=== PATIENT | female | born 2000 | race Caucasian/White ===

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

== ENCOUNTER 2021-08-19 19:09 | Emergency (ER) | payer SELFPAY ==
[~2021-08-19] VITALS: Ht 162.6 cm; Wt 63.5 kg
[2021-08-19 20:08] VITALS: BP_SYST 122
[2021-08-19] MEDS ORDERED: LIDOCAINE 1%, 20 ML MDV 20 ML ONE (21:48)
[2021-08-19] MEDS ORDERED: LIDOCAINE 1% 10 MG/ML, 20 ML MDV INJ ONE (22:00)
[2021-08-19] MEDS ORDERED: CEPH-548 PO (22:02)
[2021-08-19] MEDS ORDERED: NAPR-1172 PO (22:02)
[2021-08-19 22:17] VITALS: BP_SYST 103
== END 2021-08-19 22:17 | disposition home or self-care (01) ==
LOC: SED 19:09
DX: L03.012 Cellulitis of left finger (principal); Z79.899 Other long term (current) drug therapy
CPT/HCPCS: 10060; 99283; J2001

== ENCOUNTER 2022-04-04 16:47 | Emergency (ER) | payer MEDICAID ==
[~2022-04-04] VITALS: Ht 162.6 cm; Wt 68.0 kg
[~2022-04-04 16:47] MED LIST: CEPH-548 PO; NAPR-1172 PO
[2022-04-04 17:06] VITALS: BP_SYST 130
--- NOTE | 2022-04-04 17:17 | NUR ---
Patient triaged and placed in waiting room. VSS and patient appears in no acute distress at this time. Accompanied by staff, awaiting available bed, and MD notified of need for MSE.
--- NOTE | 2022-04-04 17:47 | NUR ---
ER Dr. Mccord in waiting room examining patient.
--- NOTE | 2022-04-04 17:47 | NUR ---
Patient came in from home c/o increasing anxiety over the last two months. 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 Pt is calm and cooperative, VSS. Will continue to monitor and provide care as ordered.
[2022-04-04 18:04] LABS: BASOPHILS # (AUTO) 0.1 K/uL (0.0-0.2); BASOPHILS % (AUTO) 0.9 % (0.0-2.0); EOSINOPHILS # (AUTO) 0.6 K/uL (0.0-0.4); EOSINOPHILS % (AUTO) 7.2 % (0.0-4.0); HEMATOCRIT 36.6 % (36-48); HEMOGLOBIN 12.5 g/dL (12.0-16.0); LYMPHOCYTES # (AUTO) 3.1 K/uL (1.0-5.5); LYMPHOCYTES % (AUTO) 36.8 % (20.5-51.5); MEAN CORPUSCULAR HEMOGLOBIN 30 pg (27-31); MEAN CORPUSCULAR HGB CONC 34 % (32-36); MEAN CORPUSCULAR VOLUME 87 fL (79.0-98.0); MONOCYTES # (AUTO) 0.6 K/uL (0.0-1.0); MONOCYTES % (AUTO) 6.9 % (1.7-9.3); NEUTROPHILS # (AUTO) 4.1 K/uL (1.8-7.7); NEUTROPHILS % (AUTO) 48.2 % (40.0-70.0); PLATELET COUNT (AUTO) 220 K/uL (130-430); RED BLOOD CELL COUNT(AUTO) 4.22 MIL/uL (4.2-6.2); RED CELL DISTRIBUTION WIDTH 12.7 % (9.0-15.0); WHITE BLOOD COUNT (AUTO) 8.5 K/uL (4.8-10.8)
[2022-04-04 18:19] LABS: ANION GAP 7 (5-15); CHLORIDE 105 mmol/L (98-107); GLUCOSE 96 mg/dL (70-99); SODIUM SERUM 140 mmol/L (136-145)
[2022-04-04 18:20] LABS: ALANINE AMINOTRANSFERASE 20 U/L (12-78); ALBUMIN 3.3 g/dL (3.4-4.8); AMYLASE 60 U/L (0-100); ASPARTATE AMINOTRANSFERASE 19 U/L (10-37); C-REACTIVE PROTEIN QUANT < 0.2 mg/dL (0-0.5); CALCIUM 8.2 mg/dL (8.4-11.0); CREATININE 0.82 mg/dL (0.55-1.30); GFR AFRICAN AMERICAN 112 mL/min (>90); LIPASE 124 U/L (73-393); TOTAL BILIRUBIN 0.3 mg/dL (0.0-1.0); UREA NITROGEN, BLOOD 11 mg/dL (8-21)
[2022-04-04 18:27] LABS: ACETONE, SERUM NEGATIVE (NEGATIVE)
[2022-04-04] MEDS ORDERED: ALPR0.25 PO (18:45)
[2022-04-04 18:50] LABS: BILIRUBIN,URINE NEGATIVE (NEGATIVE); BLOOD, URINE NEGATIVE (NEGATIVE); CLARITY/URINE CLEAR (CLEAR); COLOR,URINE YELLOW (YELLOW); GLUCOSE,URINE NEGATIVE (NEGATIVE); KETONES,URINE NEGATIVE (NEGATIVE); LEUKOCYTE ESTERASE ,URINE NEGATIVE (NEGATIVE); NITRITE, URINE NEGATIVE (NEGATIVE); PROTEIN URINE NEGATIVE (NEGATIVE); UROBILINOGEN,URINE 0.2 (0.2-1.0)
[2022-04-04 19:22] VITALS: BP_SYST 130
--- NOTE | 2022-04-04 19:22 | NUR ---
Patient given written and verbal discharge instructions and verbalizes understanding. ER Dr. Mccord discussed with patient the results and treatment provided. Patient in stable condition. ID arm band removed. Rx of xanax given. Patient educated on pain management and to follow up with PMD. Pain Scale 0. Opportunity for questions provided and answered. Medication side effect fact sheet provided.
== END 2022-04-04 19:22 | disposition home or self-care (01) ==
LOC: SED 16:47
DX: F41.9 Anxiety disorder, unspecified (principal); Z79.899 Other long term (current) drug therapy
CPT/HCPCS: 36415; 80053; 81003; 81025; 82009; 82150; 83605; 83690; 84703; 85025; 86140; 99283

== ENCOUNTER 2024-06-15 12:22 | Emergency (ER) | payer OTHER, MEDICAID ==
[~2024-06-15] VITALS: Ht 162.6 cm; Wt 70.8 kg
[2024-06-15 12:22] VITALS: BP_SYST 118; PULSE 82; RESP 18; TEMP 98; O2SAT 100
[~2024-06-15 12:22] MED LIST changes: +ALPR0.25 PO
[2024-06-15] MEDS ORDERED: ONDANSETRON HCL 4 MG/2 ML VIAL IVP ONE (13:00)
[2024-06-15] MEDS: NACL 0.9% 1,000 ML IV ONE (13:13)
[2024-06-15 13:19] LABS: BASOPHILS % (AUTO) 0.5 % (0.0-2.0); EOSINOPHILS # (AUTO) 0.1 K/uL (0.0-0.4); EOSINOPHILS % (AUTO) 1.6 % (0.0-4.0); HEMATOCRIT 37.4 % (36-48); HEMOGLOBIN 12.5 g/dL (12.0-16.0); LYMPHOCYTES % (AUTO) 25.9 % (20.5-51.5); MEAN CORPUSCULAR HEMOGLOBIN 30 pg (27-31); MEAN CORPUSCULAR HGB CONC 33 % (32-36); MEAN CORPUSCULAR VOLUME 89 fL (79.0-98.0); MONOCYTES # (AUTO) 0.5 K/uL (0.0-1.0); MONOCYTES % (AUTO) 6.5 % (1.7-9.3); NEUTROPHILS # (AUTO) 5.1 K/uL (1.8-7.7); NEUTROPHILS % (AUTO) 65.5 % (40.0-70.0); PLATELET COUNT (AUTO) 237 K/uL (130-430); RED BLOOD CELL COUNT(AUTO) 4.21 MIL/uL (4.2-6.2); WHITE BLOOD COUNT (AUTO) 7.9 K/uL (4.8-10.8)
[2024-06-15 13:25] VITALS: BP_SYST 118; PULSE 82; RESP 18; TEMP 98; O2SAT 100
[2024-06-15 13:51] LABS: ALBUMIN 3.6 g/dL (3.4-4.8); BILIRUBIN,DIRECT 0.1 mg/dL (0.0-0.3); CALCIUM 8.8 mg/dL (8.4-11.0); CREATININE 0.67 mg/dL (0.55-1.30); POTASSIUM 3.8 mmol/L (3.5-5.1); TOTAL BILIRUBIN 0.6 mg/dL (0.0-1.0); TOTAL PROTEIN, SERUM 7.4 g/dL (6.4-8.3)
[2024-06-15 13:52] LABS: BILIRUBIN,URINE NEGATIVE (NEGATIVE); CLARITY/URINE CLEAR (CLEAR); COLOR,URINE YELLOW (YELLOW); GLUCOSE,URINE NEGATIVE (NEGATIVE); KETONES,URINE TRACE (NEGATIVE); PROTEIN URINE NEGATIVE (NEGATIVE)
[2024-06-15 13:53] LABS: BLOOD, URINE NEGATIVE (NEGATIVE); LEUKOCYTE ESTERASE ,URINE NEGATIVE (NEGATIVE); NITRITE, URINE NEGATIVE (NEGATIVE); UROBILINOGEN,URINE 0.2 (0.2-1.0)
[2024-06-15] MEDS ORDERED: ONDA-8 TL (16:12)
== END 2024-06-15 16:49 | disposition home or self-care (01) ==
LOC: SED 12:22
DX: O21.8 Other vomiting complicating pregnancy (principal); O26.891 Other specified pregnancy related conditions, first trimester; R19.7 Diarrhea, unspecified; Z3A.01 Less than 8 weeks gestation of pregnancy; Z79.899 Other long term (current) drug therapy; Z79.2 Long term (current) use of antibiotics
CPT/HCPCS: 99284; 96360; 76830; 76857; 80076; 80048; 81001; 83690; 85025; 36415; 81025; 81003; J7030